=== PATIENT | female | born 1960 | race Caucasian/White ===

== ENCOUNTER → 2020-12-06 13:12 | Outpatient (CLI) | payer MEDICARE, MEDICAID, SELFPAY ==
--- NOTE | 2020-12-06 13:25 | CT_ITS ---
STUDY: CT CHEST WITHOUT CONTRAST. Cardiac repeat examination. REASON FOR EXAM: Female, 60 years old. SOB/FATIGUE RADIATION DOSAGE (If Supplied By Facility): CTDIvol = ( 26 ) mGy, DLP = ( 1532.40 ) mGycm TECHNIQUE: Transaxial imaging was performed without the administration of intravenous contrast material. Individualized dose optimization techniques were used for this CT. COMPARISON: None. FINDINGS: The lungs are normal. There is no demonstrated pleural abnormality. Normal heart and pericardium. There are multiple small lymph nodes within the mediastinum, which are normal in size and morphology most compatible with reactive lymph hyperplasia. Normal hilar regions. Normal unenhanced pulmonary arteries. There is atherosclerotic calcification of the aortic arch with tortuosity and elongation of the aortic arch and descending thoracic aorta. There are multi-level degenerative changes of the thoracic spine. There is no demonstrated abnormality of the visualized upper abdomen. CT/Limited Chest CT w/CCTA IMPRESSION: Atherosclerotic plaque formation of the aortic arch. Please go to: [email or web address] , for a description of the calculator. Electronically Signed: Fernando Rodriguez MD at 19:25 EDT , Service support ,
[2020-12-06 13:58] VITALS: BP 163/68; PULSE 52; RESP 16; O2SAT 93; BMI 44.6
[2020-12-06 14:26] LABS: CREATININE FINGERSTICK 1.4 mg/dL (0.55-1.02)
[2020-12-06 14:30] VITALS: BP 149/72; PULSE 53
[2020-12-06] MEDS: Nitroglycerin SL (ED/IMG/CATH) 0.4 MG TABLET SL (14:30)
[2020-12-06 14:39] VITALS: BP 120/61; PULSE 59; RESP 16; O2SAT 94
--- NOTE | 2020-12-08 17:32 | CCTA.WCONT ---
CCTA w/Cont Coronary Arteries Date of Study:: 12/06/20 Chest pain High-resolution computed tomographic imaging of the chest was performed on 12/06/2020 with particular attention paid to the coronary arteries. Images from the examination were analyzed for the presence and extent of coronary calcification using the coronary calcification quantification software. The patient also underwent computed tomographic coronary angiography using 100 cc of noniodinated contrast. The images were reconstructed and compared in slice 10 2.62 mm slices. The patient tolerated the procedure well. The results of the coronary calcification analysis as well as the coronary arteriogram are noted below. Left main coronary calcium 0 Left anterior descending artery 0 Left circumflex artery 0 Right coronary artery 0 Total coronary calcium score 0. Coronary angiography. The aortic root is noted to be normal in size. The left main coronary artery arose from the left coronary cusp. It bifurcated to the left anterior descending artery and a left circumflex artery. No significant atherosclerotic plaquing was noted in this vessel. Left anterior descending artery. The left anterior descending artery was a medium size vessel. It coursed towards the apex of the left ventricle with no significantly high-grade stenosis noted. Left circumflex artery. The left circumflex artery was a nondominant vessel. There was no significant stenosis noted in this vessel. Right coronary artery. The right coronary artery was a large dominant vessel arising from the right coronary cusp. It caused and bifurcating to the posterior descending artery and a posterolateral vessel. No significant stenosis was noted in this vessel. Conclusion: Coronary calcium score of 0. No obstructive coronary disease noted by CT angiography. Conclusion: No evidence of atherosclerotic plaquing or coronary calcification or obstruction noted.
== END ==
PROVIDERS: PCP Nurse Practitioner Primary Care; Referring Provider Nurse Practitioner Family; Visit Provider Nurse Practitioner Family
DX: R06.02 Shortness of breath (principal); R53.83 Other fatigue; I34.1 Nonrheumatic mitral (valve) prolapse
CPT/HCPCS: 75571; 75574; 76380; Q9967

== ENCOUNTER → 2024-04-30 | Outpatient (CLI) | payer MEDICARE, SELFPAY | END | disposition home or self-care (01) | LOC: PSN 06:35 | PROVIDERS: PCP Nurse Practitioner Primary Care; Referring Provider Internal Medicine Pulmonary Disease; Visit Provider Internal Medicine Pulmonary Disease | DX: I27.20 Pulmonary hypertension, unspecified (principal); R06.02 Shortness of breath | CPT/HCPCS: 94060; 94726; 94729 ==

== ENCOUNTER → 2024-05-07 | Outpatient (CLI) | payer MEDICARE, SELFPAY ==
--- NOTE | 2024-05-07 12:10 | CT_ITS ---
STUDY: CT CHEST WITHOUT CONTRAST REASON FOR EXAM: Female, 64 years old. Shortness of breath, pulmonary hypertension. RADIATION DOSAGE (If Supplied By Facility): CTDIvol = ( 19.74 ) mGy, DLP = ( 685.55 ) mGycm TECHNIQUE: Transaxial imaging was performed without the administration of intravenous contrast material. Multiplanar coronal and sagittal images were reformatted. Individualized dose optimization techniques were used for this CT. COMPARISON: No relevant priors. FINDINGS: CHEST The lungs are normal. There is no demonstrated pleural abnormality. There are calcifications of the coronary arteries. There are small lymph nodes within the mediastinum, which are normal in size and morphology most compatible with reactive lymph hyperplasia. Normal hilar regions. Normal unenhanced pulmonary arteries. There is atherosclerotic calcification of the aortic arch. There are degenerative changes of the thoracic spine. The spleen is not visualized. There is a 2 cm splenule in the left upper quadrant. CT/Chest without Contrast IMPRESSION: Normal unenhanced CT chest T abdomen examination. Electronically Signed: Fernando Rodriguez MD at 11:02 EDT ,
[2024-05-07 12:30] VITALS: PULSE 117; PULSE 120; PULSE 133; PULSE 68; PULSE 73; O2SAT 94; O2SAT 95; O2SAT 96
--- NOTE | 2024-05-07 13:13 | CPS ---
Pt stated upon arrival she was extremely anxious. 3 minutes into walk pt needed to take a break. Pt stated she felt like her heart was racing and was feeling S.O.B. Pt also mentioned that she felt her anxiety was increasing due to these symptoms. Pt did not resume walk due to these symptoms.
--- NOTE | 2024-05-11 10:36 | PCM.PSN.6M ---
PSN 6 Minute Walk Test 6 Minute Walk Test 6 Minute Walk Test: 6 Minute Walk Test PSN:6-Minute Walk Test Start: 05/07/24 13:08 Freq: Status: Active Protocol: [id number] Document 05/07/24 12:30 AEH (Rec: 05/07/24 13:17 AEH [email or web address]) 6 Minute Walk Test Date Performed 05/07/24 Time Performed 12:30 Height 5 ft 7 in Weight: 282 lb Weight in Pounds 282.[address]: John Helton V Assistive device used: None Pre-test Oxygen Delivery Method Room Air Pulse Ox (%) 96 Pulse Rate (60-100 beats/min) 68 Dyspnea Jim Scale (0-10) 0.5 Exertion Jim Scale (6-20) 6 1st minute Oxygen Delivery Method Room Air Pulse Ox (%) 95 Pulse Rate (60-100 beats/min) 117 H 2nd minute Oxygen Delivery Method Room Air Pulse Ox (%) 94 Pulse Rate (60-100 beats/min) 133 H 3rd minute Oxygen Delivery Method Room Air Pulse Ox (%) 94 Pulse Rate (60-100 beats/min) 133 H Dyspnea Jim Scale (0-10) 4 Number of Rests Taken 1 Reported Symptoms Increased Work of Breathing 4th minute Oxygen Delivery Method Room Air Dyspnea Jim Scale (0-10) 4 Number of Rests Taken 1 Reported Symptoms Increased Work of Breathing 5th minute Oxygen Delivery Method Room Air Dyspnea Jim Scale (0-10) 4 Number of Rests Taken 1 Reported Symptoms Increased Work of Breathing 6th minute Oxygen Delivery Method Room Air Pulse Ox (%) 96 Pulse Rate (60-100 beats/min) 120 H Dyspnea Jim Scale (0-10) 3 Exertion Jim Scale (6-20) 14 Post-test Oxygen Delivery Method Room Air Pulse Ox (%) 96 Pulse Rate (60-100 beats/min) 73 Full Laps Walked 11 Partial Lap, Number of Tiles Walked 0 Total Distance Walked (ft) 649 05/07/24 13:13 Cardiopulmonary Services by Mary Kate Diallo Pt stated upon arrival she was extremely anxious. 3 minutes into walk pt needed to take a break. Pt stated she felt like her heart was racing and was feeling S.O.B. Pt also mentioned that she felt her anxiety was increasing due to these symptoms. Pt did not resume walk due to these symptoms. Initialized on 05/07/24 13:13 - END OF NOTE Interpretation Interpretation: The patient ambulated 649 feet over the course of 6 minutes beginning on room air without assistive devices. Pretesting oxygen saturation was noted to be 96% on room air. With ambulation, the kvng oxygen saturation was 94%. The patient did take a break at minute 4 and 5 of testing. Although there was evidence of impaired walk distance, there was no significant exertional oxygen desaturation. However, the sensitivity for detecting exertional hypoxemia was limited by the patient's 2-minute rest break during testing. Recommendations Recommendations: There is no indication for the use of supplemental oxygen at this time.
== END | disposition home or self-care (01) ==
PROVIDERS: PCP Nurse Practitioner Primary Care; Referring Provider Internal Medicine Pulmonary Disease; Visit Provider Internal Medicine Pulmonary Disease
DX: I27.20 Pulmonary hypertension, unspecified (principal); R06.02 Shortness of breath
CPT/HCPCS: 71250; 94618